=== PATIENT | male | born 1995 | race Caucasian/White ===

== ENCOUNTER 2018-11-04 12:18 | Emergency (ER) | payer OTHER ==
[2018-11-04 12:25] VITALS: TEMP 98.4
[2018-11-04] MEDS ORDERED: KETOROLAC 60 MG/2 ML VIAL IM STA (12:28)
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
[2018-11-04 12:43] VITALS: BP 141/91; PULSE 99; RESP 18
== END 2018-11-04 13:05 | disposition home or self-care (01) ==
LOC: EC 12:18
DX: T23.221A Burn of second degree of single right finger (nail) except thumb, initial encounter (principal); T31.0 Burns involving less than 10% of body surface; F17.200 Nicotine dependence, unspecified, uncomplicated; Z88.8 Allergy status to other drugs, medicaments and biological substances; X19.XXXA Contact with other heat and hot substances, initial encounter; Y92.009 Unspecified place in unspecified non-institutional (private) residence as the place of occurrence of the external cause
CPT/HCPCS: 99283; 96372; J1885

== ENCOUNTER → 2019-06-15 | Outpatient (CLI) | payer OTHER ==
--- NOTE | 2019-06-15 12:07 | ECHOS ---
STRESS ECHOCARDIOGRAM INDICATIONS: Difficulty in breathing. MEDICATIONS: Norvasc, Lotensen, inhaler as needed. BASELINE HEART RATE: 79 BASELINE BLOOD PRESSURE: 123/72 MAXIMUM HEART RATE: 191 MAXIMUM BLOOD PRESSURE: 173/59 85% MPHR: 167 100% MPHR: 196 METS: 12.0 MAXIMUM STAGE REACHED: 4 TOTAL EXERCISE TIME: 10.5 CLINICAL INFORMATION: Baseline EKG shows sinus rhythm, normal axis, normal intervals. Patient exercised on Angel protocol for a total of 10.5 minutes achieving 12 METS, 97% of predicted maximal heart rate without chest pain or diagnostic ST-segment depression. Baseline echo shows normal left ventricular size wall motion and systolic function. Postexercise, there is normal hyperdynamic response of all segments of myocardium noted. CONCLUSION: 1. Excellent exercise tolerance. 2. Negative stress test by EKG criteria. 3. Negative stress echo. KIERSTEN / HARRISN: [id number] /
== END | disposition home or self-care (01) ==
LOC: RADNMMAIN 09:58
PROVIDERS: ATTEND Family Medicine
DX: R06.02 Shortness of breath (principal); Z88.8 Allergy status to other drugs, medicaments and biological substances
CPT/HCPCS: 93351

== ENCOUNTER 2024-07-11 08:52 | Emergency (ER) | payer OTHER ==
[2024-07-11 09:05] VITALS: BP 160/91; PULSE 60; RESP 18; TEMP 98.6
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
--- NOTE | 2024-07-11 09:49 | XR ---
EXAMINATION TYPE: XR ankle complete LT DATE OF EXAM: 07/11/2024 COMPARISON: NONE HISTORY: Pain FINDINGS: Three views of the ankle demonstrate the ankle mortise to be intact and symmetric. The joint spaces are preserved. The osseous structures are intact. IMPRESSION: 1. No definite acute fracture or dislocation, if symptoms persist follow-up study in 7 to 10 days wou ld be suggested. [facility], , 07/11/2024 9:47 AM
--- NOTE | 2024-07-11 09:58 | XR ---
EXAMINATION TYPE: XR Hip RT and AP Pelvis DATE OF EXAM: 07/11/2024 COMPARISON: NONE HISTORY: Pain TECHNIQUE: A single AP view of the pelvis and 2 views of the right hip is obtained. Two views of the right hip are obtained. FINDINGS: There is no acute fracture/dislocation evident in the pelvis. The hip and sacroiliac join ts appear symmetric. Tiny calcification involving the lateral acetabulum can be associated chronic ac etabular labral tear.. The overlying soft tissue appears unremarkable. Chronic changes involving the symphysis pubis. IMPRESSION: 1. No acute fracture. Calcification along the lateral margin of the acetabulum can occasionally be as sociated with chronic acetabular labral tear. [facility], , 07/11/2024 9:56 AM
--- NOTE | 2024-07-11 09:59 | XR ---
EXAM TYPE: LUMBAR SPINE X RAY SERIES COMPARISON: NONE HISTORY: Pain TECHNIQUE: 4 views are submitted. FINDINGS: Alignment is anatomic. The pedicles are intact. The transverse processes are intact. There is no s pondylolysis or spondylolisthesis. Multilevel Schmorl's nodes noted. Minimal wedging of T12. IMPRESSION: 1. Minimal anterior wedging T12 indeterminate age correlate with CT scan as clinically warranted.. [facility], , 07/11/2024 9:57 AM
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
== END 2024-07-11 12:09 | disposition home or self-care (01) ==
LOC: EC 08:52
CPT/HCPCS: 72100; 72128; 72131; 73502; 99284